=== PATIENT | male | born 1940 | race Two or more races ===

== ENCOUNTER → 2018-06-04 | Outpatient (CLI) | payer MEDICARE, OTHER | END | disposition home or self-care (01) | LOC: PCVCCLINIC 12:38 | DX: I25.10 Atherosclerotic heart disease of native coronary artery without angina pectoris (principal); I10 Essential (primary) hypertension; E78.5 Hyperlipidemia, unspecified | CPT/HCPCS: 80061 ==

== ENCOUNTER → 2018-07-22 | Outpatient (CLI) | payer MEDICARE, OTHER ==
--- NOTE | 2018-07-24 11:38 | PCVCIMAG ---
APPROVED REPORT Imaging Protocol: Rest Tc-99m/Stress Tc-99m 1 day Study performed: 07/22/2018 09:05:57 Indication: CAD Patient Location: Out-Patient Stress Nurse: Halie Palmer RN DE Tech:Lindsay JOE RothMT Ht: 5 ft 10 in Wt: 180 lbs BSA: 2.00 m2 HR: 60 bpm BP: 137/71 mmHg BMI: 25.82 Rhythm: SR, First degree AV Block Medical History Medical History: HTN, Hyperlipidemia, CAD, Age Medications: Amlodipine, ASA, Chlorthalidone, Amaryl, Vascepa, Lisinopril, Bystolic, Crestor, Flomax, Brilinta Allergies: No known drug allergies Previous Cardiac Procedures: PCI - Prox LAD Pretest Chest Pain Characteristics: No chest pain Exercise History: Physically active Meds Held (24 hrs): Bystolic Resting Data Rest SPECT myocardial perfusion imaging was performed in supine position 45 minutes following the intravenous injection of 10.5 mCi of Tc-99m Sestamibi. Time of rest injection: 0845 Administration Route: IV Administration Site: Left Hand Exercise Stress At peak stress, the patient was injected intravenously with 34.5mCi of Tc-99m Sestamibi. Administration Route: IV Administration Site: Left Hand Patient continued to exercise for 1 minute(s). Gated Stress SPECT was performed 45 minutes after stress injection. The images were gated to evaluate regional wall motion and calculate left ventricular ejection fraction. Stress Test Details Stress Test: Exercise stress testing was performed using a Enrrique protocol. HRMax Heart Rate (APMHR): 142 bpm Resting HR: 60 bpmTarget HR (85% APMHR): 120 bpm Max HR Achieved: 127 bpm % of APMHR: 89 Recovery HR: 76 bpm BP Resting BP: 137/71 mmHg Recovery BP: 167/64 mmHg ECG Resting ECG: Sinus Rhythm, 1st degree AV block, LVH Stress ECG: Sinus Tachycardia ST Change: None Maximum ST Deviation: 0 mm Arrhythmia: VPC's Recovery ECG: Sinus Rhythm, 1st degree AV block, LVH Recovery ST Change: None, None Clinical Reason for Termination: Fatigue, Dyspnea Stress Symptoms: Dyspnea Exercise duration: 9 min 36 sec Exercise capacity: 10.10 METs Overall Exercise Capacity for Age: Good Scale: Active Angina Score: None Symptoms resolved during recovery. Stress ECG Conclusion 1. Subjectively negative for ischemia 2. Elective cartographic a negative for ischemia 2. Satisfactory functional capacity Conteh Treadmill Score is 9.0 which is Low risk. Study Data Post stress, the left ventricular ejection was 66%.. SSS: 0 SRS: 2 SDS: 0 TID = 0.77. Perfusion There is a large area of moderately reduced uptake in the entire segment of the inferior wall which is seen on the stress images as well as the resting images. This area thickens and moves normally and is most consistent with attenuation artifact. Wall Motion Normal left ventricular wall motion. Nuclear Conclusion ECG Findings: negative for ischemia Clinical Findings: negative for ischemia Nuclear Findings: negative for ischemia Exercise Capacity: normal Left Ventricular Function: normal 1. Low risk study <Conclusion> 1. Subjectively negative for ischemia 2. Elective cartographic a negative for ischemia 2. Satisfactory functional capacity
== END | disposition home or self-care (01) ==
LOC: PCVCIMAG 10:21
PROVIDERS: ATTEND Internal Medicine
DX: I25.10 Atherosclerotic heart disease of native coronary artery without angina pectoris (principal)
CPT/HCPCS: 78452; 93017; A9500

== ENCOUNTER → 2018-11-19 | Outpatient (CLI) | payer MEDICARE, OTHER | END | disposition home or self-care (01) | LOC: PCVCCLINIC 15:03 | PROVIDERS: ATTEND Internal Medicine | DX: I25.10 Atherosclerotic heart disease of native coronary artery without angina pectoris (principal); I10 Essential (primary) hypertension; E78.5 Hyperlipidemia, unspecified; Z79.899 Other long term (current) drug therapy; Z79.82 Long term (current) use of aspirin; Z87.891 Personal history of nicotine dependence | CPT/HCPCS: 36415; 80061; 93005; G0463 ==

== ENCOUNTER → 2019-04-30 | Outpatient (CLI) | payer MEDICARE, OTHER ==
--- NOTE | 2019-04-30 13:00 | PCVCIMAG ---
EXAM: BILATERAL CAROTID DUPLEX INDICATION: Carotid Occlusive Disease. FINDINGS: Doppler Measurements (centimeters per second): RIGHT: Peak CCA-55 Peak ECA-80 Diastolic ICA-9, Peak ICA-37 ICA/CCA Ratio-0.7 LEFT: Peak CCA-60 Peak ECA-83 Diastolic ICA-10 Peak ICA-42 ICA/CCA Ratio-0.9 RIGHT CAROTID: The carotid bulb has mild plaque. The proximal internal carotid artery shows <40% stenosis. The common carotid artery shows no significant stenosis. The external carotid artery shows no significant stenosis. LEFT CAROTID: The carotid bulb has mild plaque. The proximal internal carotid artery shows <40% stenosis. The common carotid artery shows no significant stenosis. The external carotid artery shows no significant stenosis. Antegrade flow in both vertebral arteries. IMPRESSION: <40% stenosis of the right internal carotid artery with mild plaque. <40% stenosis of the left internal carotid artery with mild plaque. LOC:[place] [id number]
== END | disposition home or self-care (01) ==
LOC: PCVCIMAG 12:30
PROVIDERS: ATTEND Internal Medicine
DX: I65.23 Occlusion and stenosis of bilateral carotid arteries (principal); R09.89 Other specified symptoms and signs involving the circulatory and respiratory systems; I25.10 Atherosclerotic heart disease of native coronary artery without angina pectoris; E78.5 Hyperlipidemia, unspecified; I10 Essential (primary) hypertension; Z87.891 Personal history of nicotine dependence
CPT/HCPCS: 93880